=== PATIENT | male | born 1940 | race Caucasian/White ===

== ENCOUNTER 2017-05-17 14:41 | Emergency (ER) | payer BC, OTHER ==
[~2017-05-17] VITALS: Ht 170.2 cm; Wt 85.3 kg
[~2017-05-17 14:41] MED LIST: AMOX875 PO; ASPI81TA82 PO; PRED20 PO; SIMV40TA PO
[2017-05-17 15:10] VITALS: BP 141/76; PULSE 61; RESP 16; TEMP 98; O2SAT 97
[2017-05-17] MEDS ORDERED: ASPI-516 CHEW (15:21)
[2017-05-17] MEDS ORDERED: SIMV40TA PO (15:21)
--- NOTE | 2017-05-17 15:30 | PD ---
HPI Chief Complaint: Chest Pain Time Seen by Provider: 15:29 Travel History International Travel<30 days: No Contact w/Intl Traveler<30days: No Traveled to known affect area: No History of Present Illness HPI 76-year-old male came to the emergency room with history of epigastric pain that developed last night all of a sudden. Patient says it was pretty intense. He was nauseous all night long but did not vomit. Pain was non-radiational. It was a sharp pain. He's never had this kind of pain in the past. When he woke up this morning the pain was gone. Patient has history of aortic stenosis and hence wanted to come in and be checked. He says that he has a surgery do next month for his valve replacement. He also has a cardiac catheterization due next Friday. 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 His told that he passed the stress test. Patient has never had stents in the past. He is not a smoker. He does have history of high cholesterol and takes medications. He says currently he is pain-free. [facility] Past Medical History Narrative Medical List of his past medical, surgical, social and family history is reviewed from the nursing note. Cardiovascular Problems: Yes (AORTIC STENOSIS) High Cholesterol: Yes Diminished Hearing: No Tetanus Vaccination: Unknown Social History Alcohol Use: No Tobacco Use: No Substance Use: No Allergies-Medications (Allergen,Severity, Reaction): Coded Allergies: No Known Allergies (Unverified Adverse Reaction, Unknown, 05/17/17) Comments No known drug allergies. Reported Meds & Prescriptions Reported Meds & Active Scripts Active Hydrocodone-Acetaminophen 5-325 mg Tab 1 Tab PO Q6H PRN Colace (Docusate Sodium) 100 Mg Capsule 100 Mg PO BID Hydrocodone-Acetaminophen 5-300 Mg Tab 1 Tab PO Q6H PRN Flomax (Tamsulosin HCl) 0.4 Mg Cap 0.4 Mg PO HS Reported Simvastatin 40 Mg Tab 40 Mg PO HS Aspirin 81 Mg Chew 81 Mg CHEW DAILY Narrative Medication List of his home medications reviewed from the nursing note. Review of Systems Except as stated in HPI: all other systems reviewed are Neg Gastrointestinal: Positive: Abdominal Pain Physical Exam Narrative GENERAL: Awake, alert, no obvious distress SKIN: Focused skin assessment warm/dry. HEAD: Atraumatic. Normocephalic. EYES: Pupils equal and round. No scleral icterus. No injection or drainage. ENT: No nasal bleeding or discharge. Mucous membranes pink and moist. NECK: Trachea midline. No JVD. CARDIOVASCULAR: Regular rate and rhythm. No murmur appreciated. RESPIRATORY: No accessory muscle use. Clear to auscultation. Breath sounds equal bilaterally. GASTROINTESTINAL: Abdomen soft, non-tender, nondistended. Hepatic and splenic margins not palpable. MUSCULOSKELETAL: No obvious deformities. No clubbing. No cyanosis. No edema. NEUROLOGICAL: Awake and alert. No obvious cranial nerve deficits. Motor grossly within normal limits. Normal speech. PSYCHIATRIC: Appropriate mood and affect; insight and judgment normal. Data Data Last Documented VS Vital Signs Date Time Temp Pulse Resp B/P (MAP) Pulse Ox O2 Delivery O2 Flow Rate FiO2 05/17/17 19:22 62 17 137/69 (91) 95 05/17/17 16:28 Nasal Cannula 2.00 05/17/17 15:10 98.0 Orders Orders Electrocardiogram (05/17/17 14:46) Basic Metabolic Panel (Bmp) (05/17/17 15:27) Ckmb (Isoenzyme) Profile (05/17/17 15:27) Complete Blood Count With Diff (05/17/17 15:27) Magnesium (Mg) (05/17/17 15:27) Prothrombin Time / Inr (Pt) (05/17/17 15:27) Act Partial Throm Time (Ptt) (05/17/17 15:27) Troponin I (05/17/17 15:27) Chest, Single Ap (05/17/17 15:27) Ecg Monitoring (05/17/17 15:27) Bilateral Bp Monitoring (05/17/17 15:27) Iv Access Insert/Monitor (05/17/17 15:27) Oximetry (05/17/17 15:27) Oxygen Administration (05/17/17 15:27) CKMB (05/17/17 15:25) CKMB% (05/17/17 15:25) Ct Abd/Pel W/O Iv Contrast (05/17/17 ) Hepatic Functional Panel (05/17/17 16:03) Lipase (05/17/17 16:03) Troponin I (05/17/17 18:30) Tamsulosin (Flomax) (05/17/17 17:15) Ed Discharge Order (05/17/17 18:58) Labs Laboratory Tests Test 05/17/17 15:25 05/17/17 18:28 White Blood Count 11.6 TH/MM3 Red Blood Count 3.89 MIL/MM3 Hemoglobin 12.6 GM/DL Hematocrit 37.9 % Mean Corpuscular Volume 97.3 FL Mean Corpuscular Hemoglobin 32.3 PG Mean Corpuscular Hemoglobin Concent 33.2 % Red Cell Distribution Width 11.6 % Platelet Count 156 TH/MM3 Mean Platelet Volume 9.4 FL Neutrophils (%) (Auto) 76.0 % Lymphocytes (%) (Auto) 11.6 % Monocytes (%) (Auto) 10.3 % Eosinophils (%) (Auto) 1.4 % Basophils (%) (Auto) 0.7 % Neutrophils # (Auto) 8.8 TH/MM3 Lymphocytes # (Auto) 1.3 TH/MM3 Monocytes # (Auto) 1.2 TH/MM3 Eosinophils # (Auto) 0.2 TH/MM3 Basophils # (Auto) 0.1 TH/MM3 CBC Comment DIFF FINAL Differential Comment Prothrombin Time 10.7 SEC Prothromb Time International Ratio 1.1 RATIO Activated Partial Thromboplast Time 23.7 SEC Blood Urea Nitrogen 16 MG/DL Creatinine 0.84 MG/DL Random Glucose 99 MG/DL Calcium Level 9.4 MG/DL Magnesium Level 2.0 MG/DL Sodium Level 138 MEQ/L Potassium Level 3.7 MEQ/L Chloride Level 106 MEQ/L Carbon Dioxide Level 25.2 MEQ/L Anion Gap 7 MEQ/L Estimat Glomerular Filtration Rate 89 ML/MIN Total Bilirubin 1.2 MG/DL Direct Bilirubin 0.2 MG/DL Indirect Bilirubin 1.0 MG/DL Aspartate Amino Transf (AST/SGOT) 17 U/L Alanine Aminotransferase (ALT/SGPT) 19 U/L Alkaline Phosphatase 51 U/L Total Creatine Kinase 153 U/L Creatine Kinase MB 1.9 NG/ML Troponin I LESS THAN 0.02 NG/ML LESS THAN 0.02 NG/ML Total Protein 6.7 GM/DL Albumin 3.5 GM/DL Lipase 164 U/L [facility] Medical Decision Making Medical Screen Exam Complete: Yes Emergency Medical Condition: Yes Medical Record Reviewed: Yes Interpretation(s) Twelve-lead EKG was reviewed by me. Normal sinus rhythm, left axis deviation, nonspecific ST-T wave changes, LVH by voltage criteria. Heart rate of 60 bpm. Differential Diagnosis ACS, non-STEMI, acute gastritis, acute cholecystitis Narrative Course 4:47 PM blood test results including LFTs and lipase are back and within normal limit. Chest x-ray is overall negative. The CAT scan to be done and resulted. Since patient had a stress test done just over 2 months ago I am fine doing a second set of troponin. If that is negative patient will be discharged home. I 've explained this to him and he understands. [address] scan interestingly shows a ureteral calculi 6 mm in the proximal right ureter. This could be the cause of his pain. Awaiting for the second troponin. Patient was given Flomax. If the second troponin is negative he'll be discharged home on prescription and follow-up for his kidney stone. Procedures EKG Prior to Arrival: No Diagnosis Primary Impression: Ureteral calculus Additional Impression: Abdominal pain Qualified Codes: R10.13 - Epigastric pain Referrals: Primary Care Physician Additional Instructions: Return to the ER if condition worsens or any other new concerns. Otherwise take the medications as per the prescription direction. Follow-up with the urologist whose name and number been provided to you. Follow-up with your primary care and metalworking instructor. Med/Other Pt SpecificInfo: Prescription(s) given Scripts Hydrocodone-Acetaminophen (Hydrocodone-Acetaminophen) 5-325 mg Tab 1 TAB PO Q6H Y for PAIN, #15 TAB 0 Refills Prov: Lyla Luz MD 05/17/17 Docusate Sodium (Colace) 100 Mg Capsule 100 MG PO BID for Prevent Constipation, #14 CAP 0 Refills Prov: Lyla Luz MD 05/17/17 Hydrocodone-Acetaminophen (Hydrocodone-Acetaminophen) 5-300 Mg Tab 1 TAB PO Q6H Y for PAIN, #15 TAB 0 Refills Prov: Lyla Luz MD 05/17/17 Tamsulosin (Flomax) 0.4 Mg Cap 0.4 MG PO HS for Manage Prostate Problems, #30 CAP 0 Refills Prov: Lyla Luz MD 05/17/17 Disposition: 01 DISCHARGE HOME Condition: Stable Lyla Luz MD May 17, 2017 15:30
[2017-05-17 15:37] VITALS: RESP 16; O2SAT 100
[2017-05-17 15:40] LABS: AUTOMATED NEUTROPHIL # 8.8 TH/MM3 (1.8-7.7); BASOPHIL # 0.1 TH/MM3 (0-0.2); BASOPHIL % 0.7 % (0.0-2.0); EOSINOPHIL # 0.2 TH/MM3 (0-0.4); EOSINOPHIL % 1.4 % (0.0-4.0); HEMATOCRIT 37.9 % (39.0-51.0); HEMOGLOBIN 12.6 GM/DL (13.0-17.0); LYMPH % 11.6 % (9.0-44.0); LYMPHOCYTE # 1.3 TH/MM3 (1.0-4.8); MEAN CELL VOLUME 97.3 FL (80.0-100.0); MEAN CORPUSCULAR HEMOGLOBIN 32.3 PG (27.0-34.0); MEAN CORPUSCULAR HGB CONC 33.2 % (32.0-36.0); MEAN PLATELET VOLUME 9.4 FL (7.0-11.0); MONO % 10.3 % (0.0-8.0); MONOCYTE # 1.2 TH/MM3 (0-0.9); PLATELET COUNT 156 TH/MM3 (150-450); RED BLOOD COUNT 3.89 MIL/MM3 (4.50-5.90); RED CELL DISTRIBUTION WIDTH 11.6 % (11.6-17.2); WHITE BLOOD COUNT 11.6 TH/MM3 (4.0-11.0)
[2017-05-17 15:45] LABS: CHLORIDE 106 MEQ/L (98-107); SODIUM (NA) 138 MEQ/L (136-145)
[2017-05-17 15:48] LABS: CALCIUM 9.4 MG/DL (8.5-10.1)
[2017-05-17 15:49] LABS: BICARBONATE 25.2 MEQ/L (21.0-32.0); BLOOD UREA NITROGEN 16 MG/DL (7-18); GLUCOSE,RANDOM 99 MG/DL (74-106)
[2017-05-17 15:52] LABS: CREATININE 0.84 MG/DL (0.60-1.30); GLOMERULAR FILTRATION RATE 89 ML/MIN (>89)
[2017-05-17 15:54] LABS: INTERNATIONAL NORMALIZED RATIO 1.1 RATIO; PROTHROMBIN TIME - PATIENT 10.7 SEC (9.8-11.6)
[2017-05-17 15:57] LABS: TROPONIN I LESS THAN 0.02 NG/ML (0.02-0.05)
[2017-05-17 16:20] LABS: ALBUMIN 3.5 GM/DL (3.4-5.0)
[2017-05-17 16:22] LABS: DIRECT BILIRUBIN ADULT 0.2 MG/DL (0.0-0.2)
[2017-05-17 16:24] LABS: TOTAL BILIRUBIN ADULT 1.2 MG/DL (0.2-1.0); TOTAL PROTEIN 6.7 GM/DL (6.4-8.2)
[2017-05-17 16:28] VITALS: BP_SYST 125; BP_SYST 131; BP_DIAS 73; BP_DIAS 82; PULSE 57; RESP 16; O2SAT 96
--- NOTE | 2017-05-17 16:37 | RADRPT ---
EXAM DATE/TIME: 05/17/2017 16:11 [facility] COMPARISON: No previous studies available for comparison. INDICATIONS : Chest pain. MEDICAL HISTORY : Hypercholesterolemia. Aortic stenosis. SURGICAL HISTORY : None. ENCOUNTER: Initial ACUITY: 1 day PAIN SCORE: 8/10 LOCATION: Bilateral chest FINDINGS: Mild diffuse interstitial prominence. Linear parenchymal opacities at the left lung base. Excellen is in the upper limits of normal for portable technique. Partially imaged thoracolumbar spinal hardware . Osseous structures are intact. CONCLUSION: 1. Mild interstitial prominence of unknown chronicity given lack of prior exams. 2. Minimal linear parenchymal opacities at the left lung base, likely atelectasis. Derrick Omalley MD on May 17, 2017 at 16:34 Board Certified Radiologist. This report was verified electronically.
--- NOTE | 2017-05-17 16:58 | RADRPT ---
EXAM DATE/TIME: 05/17/2017 16:41 [facility] COMPARISON: No previous studies available for comparison. INDICATIONS : Upper abdominal pain. ORAL CONTRAST: No oral contrast ingested. RADIATION DOSE: 19.35 CTDIvol (mGy) MEDICAL HISTORY : Hypercholesterolemia. Aortic stenosis. SURGICAL HISTORY : Orthopedic surgery. ENCOUNTER: Initial ACUITY: 2 days PAIN SCALE: 4/10 LOCATION: upper quadrant TECHNIQUE: Volumetric scanning of the abdomen and pelvis was performed. Using automated exposure control and ad justment of the mA and/or kV according to patient size, radiation dose was kept as low as reasonably achievable to obtain optimal diagnostic quality images. DICOM format image data is available electro nically for review and comparison. FINDINGS: LOWER LUNGS: The visualized lower lungs are clear. Moderate coronary artery calcifications. LIVER: Subcentimeter hypodense lesions in segments 4 and 3 of the liver which are too small to fully charact erize. There is no dilation of the biliary tree. Several small calcified gallstones. Gallbladder is o therwise unremarkable by CT. SPLEEN: Normal size without lesion. PANCREAS: Within normal limits. KIDNEYS: There is a 6 mm calcified calculus in the proximal left ureter with associated mild left hydronephros is. A second 8 mm calcified calyceal calculus is noted in the inferior pole the left kidney. There is a 5.5 cm parapelvic cyst near the left renal superior pole. There is also a 2.4 cm exophytic cyst in the superior pole of the left kidney. Linear calcifications near the superior pole are difficult to distinguish from calyceal calcifications versus calcifications along the parapelvic cyst wall. Right kidney is unremarkable. ADRENAL GLANDS: Within normal limits. VASCULAR: There is no aortic aneurysm. BOWEL/MESENTERY: Mild sigmoid diverticulosis. Bowel is otherwise unremarkable without evidence for obstruction. There is no free fluid in the fluid collection. ABDOMINAL WALL: Small fat-containing periumbilical anterior abdominal wall hernia. RETROPERITONEUM: There is no lymphadenopathy. BLADDER: No wall thickening or mass. REPRODUCTIVE: Within normal limits. INGUINAL: Small fat-containing bilateral inguinal hernias. MUSCULOSKELETAL: Posterior judy and screw fixation at T12-L2. CONCLUSION: 1. 6 mm proximal left ureteral calculus with associated mild left hydronephrosis. 2. Additional 8mm inferior pole left renal calyceal calculus. 3. 5.5 cm parapelvic cyst with additional thin linear calcifications in the superior pole of the left kidney. It is difficult to distinguish these calcifications from the cyst. These may reflect calycea l calcifications or calcifications along the cyst wall. Despite this, the calcifications are smooth a nd therefore likely Bosniak 2 lesion. 4. Ancillary findings include sigmoid diverticulosis, periumbilical and bilateral inguinal fat contai liseth hernias, subcentimeter hypodense lesions in the liver which are too small to fully characterize, moderate coronary artery calcifications and fixation of T12-L2. Derrick Omalley MD on May 17, 2017 at 16:48 Board Certified Radiologist. This report was verified electronically.
[2017-05-17] MEDS ORDERED: TAMSULOSIN HCL 0.4 MG CAP PO ONE (17:15)
[2017-05-17] MEDS ORDERED: TAMS5CAP PO (19:00)
[2017-05-17] MEDS ORDERED: HYDR-4107 PO (19:00)
[2017-05-17] MEDS ORDERED: COLA100C5 PO (19:00)
[2017-05-17 19:22] VITALS: BP 137/69
[2017-05-17] MEDS ORDERED: HYDR-3516 PO (20:16)
--- NOTE | 2017-05-18 14:39 | EKG ---
Date Performed: 05/17/2017 Time Performed: 14:46:07 PTAGE: 76 years EKG: Sinus rhythm BORDERLINE LEFT AXIS DEVIATION MINIMAL VOLTAGE CRITERIA FOR LVH, CONSIDER NORMAL VARIANT NONSPECIFIC T-WAVE ABNORMALITY BORDERLINE ECG INTERPRETATION BASED ON A DEFAULT AGE OF 40 YEARS NO PREVIOUS TRACING DOCTOR: Yusef Tucker Interpretating Date/Time 05/18/2017 14:37:02
== END 2017-05-17 19:24 | disposition home or self-care (01) ==
LOC: PHED 14:41
DX: N13.2 Hydronephrosis with renal and ureteral calculous obstruction (principal); R94.31 Abnormal electrocardiogram [ECG] [EKG]
CPT/HCPCS: 71045; 74176; 80048; 80076; 82550; 82552; 83690; 83735; 84484; 85025; 85610; 85730; 93005; 99285

== ENCOUNTER 2017-05-24 09:44 | Emergency (ER) | payer OTHER ==
[~2017-05-24 09:44] MED LIST changes: -AMOX875 PO; +ASPI-516 CHEW; -ASPI81TA82 PO; +COLA100C5 PO; +HYDR-3516 PO; +HYDR-4107 PO; -PRED20 PO; +TAMS5CAP PO
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
== END 2017-05-24 12:19 | disposition expired ==
LOC: PHED 09:44
DX: I46.9 Cardiac arrest, cause unspecified (principal); Y93.55 Activity, bike riding
CPT/HCPCS: 92950